=== PATIENT | female | born 1950 | race Caucasian/White ===

== ENCOUNTER 2018-05-27 16:52 | Observation (INO) ==
[2018-05-27] MEDS ORDERED: Aspirin 325 MG Tablet PO ONE (17:09)
[2018-05-27] MEDS ORDERED: Famotidine PF Inj 20 MG/2 ML Vial IV.PUSH ONE (17:09)
--- NOTE | 2018-05-27 17:45 | ED ---
HPI General Chief Complaint: Chest Pain Stated Complaint: Chest pain Time Seen by Provider: 05/27/18 17:01 Source: patient and family Mode of arrival: ambulatory Limitations: no limitations History of Present Illness HPI narrative: 67-year-old female who presents to the ED for evaluation of chest pain that she has had on and off for the past 3-4 days. Per patient she just came down from [place]. Per patient she came by car. Per patient chest pain has been ongoing since before coming in she thought it was was heartburn. She states that he feels like a burning sensation that goes to her throat and states in the epigastric area. Per patient gets worse when she does not eat and feels like she gets a sharper pain when she does not eat. Pain does not moved to the lower abdomen. Denies any surgeries to her abdomen other than a hysterectomy. No fevers chills or sweats. No cough or runny nose. Per patient the pain currently is 2 out of 10 and is not as severe as he was earlier today. He has not taken anything for this. She does have a history of hypothyroidism. Denies any history of cardiac disease. No other medical issues reported at this time. Related Data Home Medications Medication Instructions Recorded Confirmed levothyroxine [Synthroid] 100 mcg PO DAILY 05/27/18 05/27/18 Allergies Allergy/AdvReac Type Severity Reaction Status Date / Time ciprofloxacin Allergy Hives Verified 05/27/18 16:57 Sulfa (Sulfonamide Allergy Hives Verified 05/27/18 16:57 Antibiotics) Review of Systems ROS: all other systems reviewed are negative [facility] Medical History Medical History History of hysterectomy (Acute) Surgical History Surgical History History of thyroidectomy (Acute) Social History Social History Substance History: No History of Abuse Second Hand Smoke Exposure: No Smoking Status: Never smoker How Often Do You Have a Drink Containing Alcohol: Monthly or less Recent Travel in [facility] within the Last 8 Weeks: No Recent Out of Country Travel within the Last 8 Weeks: No Immunization History Tetanus Immunization: Unsure Exam Narrative Exam Narrative: GENERAL: Well-appearing in no distress SKIN: Focused skin assessment warm/dry. HEAD: Atraumatic. Normocephalic. EYES: Pupils equal and round. No scleral icterus. No injection or drainage. ENT: No nasal bleeding or discharge. Mucous membranes pink and moist. Tongue is midline. no Uvula deviation. NECK: Trachea midline. No JVD. CARDIOVASCULAR: Regular rate and rhythm. No murmur appreciated. RESPIRATORY: No accessory muscle use. Clear to auscultation. Breath sounds equal bilaterally. GASTROINTESTINAL: Abdomen soft, non-tender, nondistended. Hepatic and splenic margins not palpable. MUSCULOSKELETAL: No obvious deformities. No clubbing. No cyanosis. No edema. Full range of motion of the upper and lower extremities bilaterally. 2+ pulses bilaterally. NEUROLOGICAL: Awake and alert. No obvious cranial nerve deficits. Motor grossly within normal limits. Normal speech. PSYCHIATRIC: Appropriate mood and affect; insight and judgment normal. Course Initial Documented Vital Signs Temperature 98.5 F 05/27/18 16:55 Pulse Rate 92 H 05/27/18 16:55 Respiratory Rate 20 05/27/18 16:55 Blood Pressure 195/89 H 05/27/18 16:55 Pulse Oximetry 96 05/27/18 16:55 Last Documented Vital Signs Temperature 98.5 F 05/28/18 07:39 Pulse Rate 72 05/28/18 08:00 Respiratory Rate 20 05/28/18 07:39 Blood Pressure 145/66 H 05/28/18 07:39 Pulse Oximetry 97 05/28/18 07:39 Medical Decision Making CHRISTOPHER Attestation CHRISTOPHER supervised visit: Yes Attestation: I, Dr. Graham, have reviewed the advance practice practitioner's documentation and am in agreement, met with the patient face to face, made the diagnosis, and the medical decision making was done by me. *My assessment and Findings: Patient is a 67 year old female who comes in complaining of chest pain. Exam shows no acute abnormalities. Lungs are CTA, heart is RRR. Labs sent show no acute abnormalities. Patient will be placed in chest pain center for further management. MDM Narrative Medical decision making narrative: 67-year-old female who presents to the ED for evaluation of chest pain. Patient was properly examined and was found to have signs and symptoms consistent appears to be chest pain. unclear at this time. Labs and imaging ordered. Labs and imaging were essentially unremarkable here. Patient still somewhat hypertensive. She was given hydralazine IV. This time I think is reasonable for the patient be admitted to chest pain center for chest pain center rule out. My attending Dr. Graham agrees with this plan. Patient was admitted to the chest pain center by me. Medical Screen Exam Complete: Yes Emergency Medical Condition: Yes Differential Diagnosis Differential Diagnosis: Chest pain versus atypical chest pain versus GERD versus gastritis versus ACS Medical Records Medical records reviewed: Yes I reviewed the patient's medical records. Lab Data Lab results reviewed: Yes I reviewed the patient's lab results. Result diagrams: 05/27/18 17:18 05/27/18 17:18 Lab Results 05/27/18 05/27/18 05/27/18 Range/Units 17:18 17:18 17:18 WBC 9.2 (4.0-11.0) th/mm3 RBC 4.78 (4.00-5.30) mil/mm3 Hgb 14.6 (11.6-15.3) gm/dL Hct 44.0 (35.0-46.0) % MCV 92.0 (80.0-100.0) fL MCH 30.5 (27.0-34.0) pg MCHC 33.1 (32.0-36.0) % RDW 13.4 (11.6-17.2) % Plt Count 306 (150-450) th/mm3 MPV 7.6 (7.0-11.0) fL Neut % (Auto) 64.3 (16.0-70.0) % Lymph % (Auto) 27.3 (9.0-44.0) % [place] % (Auto) 7.0 (0.0-8.0) % Eos % (Auto) 0.7 (0.0-4.0) % Baso % (Auto) 0.7 (0.0-2.0) % Neut # (Auto) 5.9 (1.8-7.7) th/mm3 Lymph # (Auto) 2.5 (1.0-4.8) th/mm3 Marathon # (Auto) 0.6 (0.0-0.9) th/mm3 Eos # (Auto) 0.1 (0.0-0.4) th/mm3 Baso # (Auto) 0.1 (0.0-0.2) th/mm3 WBC Differential . Differential Comment Auto diff final Sodium 138 (136-145) meq/L Potassium 3.8 (3.5-5.1) meq/L Chloride 103 (98-107) meq/L Carbon Dioxide 27.7 (21.0-32.0) meq/L Anion Gap 7 (5-15) meq/L BUN 10 (7-18) mg/dL Creatinine 1.00 (0.50-1.00) mg/dL Estimated GFR 56 L (>89) mL/min Random Glucose 155 H (74-106) mg/dL Calcium 8.6 (8.5-10.1) mg/dL Total Bilirubin 0.3 (0.2-1.0) mg/dL AST 31 (15-37) U/L ALT 38 (10-53) U/L Alkaline Phosphatase 116 (45-117) U/L Total Creatine Kinase 124 (26-192) U/L CK-MB (CK-2) 2.4 (0.5-3.6) ng/mL Troponin I Less than 0.02 L (0.02-0.05) ng/mL Total Protein 7.7 (6.4-8.2) g/dL Albumin 3.6 (3.4-5.0) g/dL Lipase 221 (73-393) U/L TSH 1.270 Cancelled (0.358-3.740) uIU/mL 05/27/18 05/28/18 Range/Units 21:00 00:22 WBC (4.0-11.0) th/mm3 RBC (4.00-5.30) mil/mm3 Hgb (11.6-15.3) gm/dL Hct (35.0-46.0) % MCV (80.0-100.0) fL MCH (27.0-34.0) pg MCHC (32.0-36.0) % RDW (11.6-17.2) % Plt Count (150-450) th/mm3 MPV (7.0-11.0) fL Neut % (Auto) (16.0-70.0) % Lymph % (Auto) (9.0-44.0) % Marathon % (Auto) (0.0-8.0) % Eos % (Auto) (0.0-4.0) % Baso % (Auto) (0.0-2.0) % Neut # (Auto) (1.8-7.7) th/mm3 Lymph # (Auto) (1.0-4.8) th/mm3 Marathon # (Auto) (0.0-0.9) th/mm3 Eos # (Auto) (0.0-0.4) th/mm3 Baso # (Auto) (0.0-0.2) th/mm3 WBC Differential Differential Comment Sodium (136-145) meq/L Potassium (3.5-5.1) meq/L Chloride (98-107) meq/L Carbon Dioxide (21.0-32.0) meq/L Anion Gap (5-15) meq/L BUN (7-18) mg/dL Creatinine (0.50-1.00) mg/dL Estimated GFR (>89) mL/min Random Glucose (74-106) mg/dL Calcium (8.5-10.1) mg/dL Total Bilirubin (0.2-1.0) mg/dL AST (15-37) U/L ALT (10-53) U/L Alkaline Phosphatase (45-117) U/L Total Creatine Kinase 117 99 (26-192) U/L CK-MB (CK-2) (0.5-3.6) ng/mL Troponin I Less than 0.02 L Less than 0.02 L (0.02-0.05) ng/mL Total Protein (6.4-8.2) g/dL Albumin (3.4-5.0) g/dL Lipase (73-393) U/L TSH (0.358-3.740) uIU/mL Imaging Data Attestation: I personally reviewed and interpreted this imaging study as follows : Radiologist's impression: Chest X-Ray 05/27/18 17:09 CONCLUSION: No acute cardiopulmonary findings. ECG Data Attestation: I personally reviewed and interpreted this ECG as follows: Interpretation: EKG shows sinus rhythm with no sign of acute ischemia read by me and attending for no sign of ST elevations. Vent rate of 96 bpm, ID interval 172 ms, no ST elevations. Discharge Plan Discharge Disposition Patient Disposition: ED Admit(ED Internal Use Only) Discharge Condition Condition: Stable Discharge Order Discharge Orders: Discharge Order (Routine); Ordered 05/28/18 Ordered By: Brittnee Weaver ED Use Only Admit Order (Routine); Ordered 05/27/18 Ordered By: Lm Mclain Discharge Details Anticipated Discharge Date: 05/28/18 Diagnosis: Chest pain, rule out acute myocardial infarction Physicians Team ED Provider: Deisy Graham ED Midlevel Provider: Lm Mclain Primary Care Provider: UNKNOWN, Attending Provider: Mckayla Medina Status ED Status: Left Department Discharge Information Discharge Date/Time: 05/27/18 22:30
--- NOTE | 2018-05-27 17:46 | XR ---
EXAM DATE: 05/27/2018 5:42 PM EST AGE/SEX: 67 years / Female INDICATIONS: Mid chest pain. CLINICAL DATA: This is the patient's initial encounter. Patient reports that signs and symptoms have been present for 3 days and indicates a pain score of 5/10. MEDICAL/SURGICAL HISTORY: None. None. COMPARISON: No prior exams available for comparison. FINDINGS: A single AP view of the chest demonstrates the lungs to be symmetrically aerated without evidence of mass, focal consolidation, or effusion. Minimal linear atelectasis/scarring in the lateral left lung base. No definite pneumothorax identified. The cardiomediastinal contours are unremarkable. Osseous structures are grossly intact. CONCLUSION: No acute cardiopulmonary findings. Electronically signed by: Chetna Mayen MD Board Certified Radiologist 05/27/2018 5:45 PM EST
[2018-05-27 17:57] LABS: Baso # (Auto) 0.1 th/mm3 (0.0-0.2); Baso % (Auto) 0.7 % (0.0-2.0); Eos # (Auto) 0.1 th/mm3 (0.0-0.4); Eos % (Auto) 0.7 % (0.0-4.0); Hemoglobin 14.6 gm/dL (11.6-15.3); Lymph # (Auto) 2.5 th/mm3 (1.0-4.8); Lymph % (Auto) 27.3 % (9.0-44.0); Mean Corpuscular HGB Conc 33.1 % (32.0-36.0); Mean Corpuscular Hemoglobin 30.5 pg (27.0-34.0); Mean Platelet Volume 7.6 fL (7.0-11.0); Mono # (Auto) 0.6 th/mm3 (0.0-0.9); Neut # (Auto) 5.9 th/mm3 (1.8-7.7); Neut % (Auto) 64.3 % (16.0-70.0); Platelet Count 306 th/mm3 (150-450); Red Blood Count 4.78 mil/mm3 (4.00-5.30); Red Cell Distribution Width 13.4 % (11.6-17.2); White Blood Count 9.2 th/mm3 (4.0-11.0)
[2018-05-27 18:29] LABS: Albumin 3.6 g/dL (3.4-5.0); Anion Gap 7 meq/L (5-15); Aspartate Aminotransferase 31 U/L (15-37); Blood Urea Nitrogen 10 mg/dL (7-18); Calcium 8.6 mg/dL (8.5-10.1); Carbon Dioxide 27.7 meq/L (21.0-32.0); Chloride 103 meq/L (98-107); Glomerular Filtration Rate 56 mL/min (>89); Glucose,Random 155 mg/dL (74-106); Lipase 221 U/L (73-393); Potassium 3.8 meq/L (3.5-5.1); Sodium 138 meq/L (136-145)
[2018-05-27 18:31] LABS: Alanine Aminotransferase 38 U/L (10-53)
[2018-05-27 18:34] LABS: Alkaline Phosphatase 116 U/L (45-117); Creatine Kinase 124 U/L (26-192); Total Protein 7.7 g/dL (6.4-8.2)
[2018-05-27] MEDS ORDERED: hydrALAZINE HCl Inj 20 MG/ML Vial IV.PUSH ONE ×2 (18:41→20:14)
[2018-05-27 18:46] LABS: Creatine Kinase MB 2.4 ng/mL (0.5-3.6)
[2018-05-27] MEDS ORDERED: Acetaminophen 500 MG Tablet PO PRN (19:40)
[2018-05-27] MEDS: Famotidine 20 MG Tablet PO SCH (20:37)
[2018-05-27 21:55] LABS: Creatine Kinase 117 U/L (26-192)
[2018-05-28 01:17] LABS: Creatine Kinase 99 U/L (26-192)
[2018-05-28] MEDS ORDERED: amLODIPine 5 MG Tablet PO ONE (08:00)
[2018-05-28] MEDS ORDERED: Aspirin 325 MG Tablet PO SCH (09:00)
[2018-05-28] MEDS: Famotidine 20 MG Tablet PO SCH (09:22)
--- NOTE | 2018-05-28 10:52 | P.HPCA ---
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 Several weeks ago after attending a concert she developed what she described as a crushing low sternal chest discomfort that lasted for about 5 minutes. This was not precipitated by any activity that she is aware of and was not associated with any other symptoms. The morning after [place] she drank a bloody Dianne (unusual for her) and experienced another episode of substernal discomfort. Associated with a feeling of radiation up into her throat and mildly into her stomach that is associated with a bad taste and she describes as GERD. This seems to be associated with either an empty stomach or eating spicy foods. She is scheduled for a GI workup in the near future. Her current episode of chest discomfort began began with no precipitating events and was described as a 3 out of 10, nonradiating, no shortness of breath diaphoresis or nausea. Her brought her to the emergency room because a few weeks ago a friend of theirs also had indigestion and when he was brought to the emergency room was actually having a heart attack. She is currently pain -free and resting comfortably. She has no other medical history other than a thyroidectomy for enlarged thyroid in 2009 and a hysterectomy in 2013 Review of Systems All other systems reviewed negative except as [facility] - History History Provided By: Patient - Medical History Medical History: Medical History (Last Reviewed 05/27/18 @ 17:40 by SUSIE Brownlee) History of hysterectomy - Surgical History Surgical History: Surgical History (Last Reviewed 05/27/18 @ 17:40 by SUSIE Brownlee) History of thyroidectomy - Tobacco History Second Hand Smoke Exposure: No Smoking Status: Never smoker - Alcohol History How Often Do You Have a Drink Containing Alcohol: Monthly or less - Substance Use History Substance History: No History of Abuse - Travel History Recent Travel in the [place] Within the Last 8 Weeks: No Recent Travel Out of the Country Within the Last 8 Weeks: No - Immunization History Tetanus Immunization: Unsure Medications and Allergies Active Medications: Active Medications Acetaminophen (Tylenol) 500 mg PO Q4H PRN PRN Reason: HEADACHE Aspirin (Aspirin) 325 mg PO DAILY CRESCENCIO Last Admin: 05/28/18 09:22 Dose: 325 mg Famotidine (Pepcid) 20 mg PO BID [facility] Last Admin: 05/28/18 09:22 Dose: 20 mg Nitroglycerin (Nitrostat Sl) 0.4 mg SL Q5M PRN PRN Reason: CHEST PAIN Ondansetron HCl (Zofran Inj) 4 mg IV.PUSH Q6H PRN PRN Reason: NAUSEA Sodium Chloride (Ns Flush) 2 ml IV.FLUSH BID [facility] Last Admin: 05/28/18 09:23 Dose: 2 ml Sodium Chloride (Ns Flush) 2 ml IV.FLUSH PRN PRN PRN Reason: FLUSH AFTER USING IV ACCESS Allergies Allergy/AdvReac Type Severity Reaction Status Date / Time ciprofloxacin Allergy Hives Verified 05/27/18 16:57 Sulfa (Sulfonamide Allergy Hives Verified 05/27/18 16:57 Antibiotics) Home Medications Medication Instructions Recorded Confirmed Type levothyroxine [Synthroid] 100 mcg PO DAILY 05/27/18 05/27/18 History Exam Vital signs: Vital Signs 05/27/18 16:55 05/27/18 17:12 05/27/18 17:15 Temperature 98.5 F Pulse Rate 92 H 94 H Respiratory Rate 20 18 Blood Pressure 195/89 H 222/94 H Pulse Oximetry 96 97 97 05/27/18 17:31 05/27/18 18:02 05/27/18 18:57 Temperature Pulse Rate 95 H 82 79 Respiratory Rate 18 18 Blood Pressure 208/91 H 206/92 H Pulse Oximetry 97 95 05/27/18 20:00 05/27/18 20:03 05/27/18 20:32 Temperature Pulse Rate 93 H 96 H 109 H Respiratory Rate 17 15 Blood Pressure 216/89 H 216/89 H 199/85 H Pulse Oximetry 98 98 97 05/27/18 20:57 05/27/18 22:06 05/27/18 23:45 Temperature 97.9 F Pulse Rate 102 H 99 H 84 Respiratory Rate 16 18 Blood Pressure 192/81 H 144/67 H 149/68 H Pulse Oximetry 97 96 98 05/28/18 04:09 05/28/18 07:39 Temperature 97.7 F 98.5 F Pulse Rate 71 76 Respiratory Rate 17 20 Blood Pressure 142/68 H 145/66 H Pulse Oximetry 97 97 Intake & Output 05/27/18 05/28/18 05/28/18 18:59 06:59 18:59 Weight 99.79 kg 99.79 kg Other: # Voids 2 Date of Last Bowel Movement 05/27/18 Weight On Admission 99.79 kg Narrative: Well-nourished well-developed mildly obese woman in no acute distress Skin warm dry normal texture turgor Head normocephalic atraumatic hair normal distribution Eyes PERRLA EOMI sclera clear Mouth mucous membranes moist tongue well papillated and midline upper partial plate in place no lesions Neck well-healed thyroid scar supple no JVD masses nodes or bruits Chest clear to auscultation with no rales wheezes or rhonchi Cardiovascular PMI is not displaced there is a regular rhythm with an occasional PVC there is also a 2/6 murmur best heard along the right sternal border. (The patient was aware of this murmur and states she has been evaluated for it in the past and was told that she has mild tricuspid regurgitation) Abdomen obese soft nontender no guarding or rebound no masses palpable Extremities no clubbing cyanosis but does have trace of edema lower extremities Neurologic cranial nerves II, IV, V, 6, 7, 12, all intact. Motor 5+ and equal in all extremities. Memory function good Psychiatric good mood and affect with intact judgment Results 05/27/18 17:18 05/27/18 17:18 Cardiac Enzymes 05/27/18 05/27/18 05/28/18 Range/Units :18 21:00 00:22 AST 31 (15-37) U/L CK-MB (CK-2) 2.4 (0.5-3.6) ng/mL Troponin I Less than 0.02 L Less than 0.02 L Less than 0.02 L (0.02-0.05) ng/mL CBC 05/27/18 Range/Units 17:18 WBC 9.2 (4.0-11.0) th/mm3 RBC 4.78 (4.00-5.30) mil/mm3 Hgb 14.6 (11.6-15.3) gm/dL Hct 44.0 (35.0-46.0) % Plt Count 306 (150-450) th/mm3 Neut # (Auto) 5.9 (1.8-7.7) th/mm3 Lymph # (Auto) 2.5 (1.0-4.8) th/mm3 Collin # (Auto) 0.6 (0.0-0.9) th/mm3 Eos # (Auto) 0.1 (0.0-0.4) th/mm3 Baso # (Auto) 0.1 (0.0-0.2) th/mm3 Comprehensive Metabolic Panel 05/27/18 Range/Units 17:18 Sodium 138 (136-145) meq/L Potassium 3.8 (3.5-5.1) meq/L Chloride 103 (98-107) meq/L Carbon Dioxide 27.7 (21.0-32.0) meq/L BUN 10 (7-18) mg/dL Creatinine 1.00 (0.50-1.00) mg/dL Calcium 8.6 (8.5-10.1) mg/dL AST 31 (15-37) U/L ALT 38 (10-53) U/L Alkaline Phosphatase 116 (45-117) U/L Total Protein 7.7 (6.4-8.2) g/dL Albumin 3.6 (3.4-5.0) g/dL Intake and Output 05/27/18 05/28/18 05/28/18 22:59 06:59 14:59 Other: # Voids 2 Date of Last Bowel Movement 05/27/18 Weight 99.79 kg Weight On Admission 99.79 kg - Imaging and Cardiology Imaging: Impressions Chest X-Ray 05/27/18 17:09 CONCLUSION: No acute cardiopulmonary findings. EKG interpretations - EKG EKG results cardiology: sinus rhythm, normal axis (Minimal ST depression is noted but unchanged x4) Caprini VTE Risk Assessment Caprini VTE Risk Assessment: No/Low Risk (score <= 1) Caprini Risk Assessment Model: Point Value = 1 Point Value = 2 Point Value = 3 Point Value = 5 Age 41-60 Minor surgery BMI > 25 kg/m2 Swollen legs Varicose veins or History of unexplained or recurrent spontaneous Oral contraceptives or hormone replacement Sepsis (< 1 month) Serious lung disease, including pneumonia (< 1 month) Abnormal pulmonary function Acute myocardial infarction Congestive heart failure (< 1 month) History of inflammatory bowel disease Medical patient at bed rest Age 61-74 Arthroscopic surgery Major open surgery (> 45 min) Laparoscopic surgery (> 45 min) Malignancy Confined to bed (> 72 hours) Immobilizing plaster cast Central venous access Age >= 75 History of VTE Family history of VTE Factor V Leiden Prothrombin [id number] Lupus anticoagulant Anticardiolipin antibodies Elevated serum homocysteine Heparin-induced thrombocytopenia Other congenital or acquired thrombophilia Stroke (< 1 month) Elective arthroplasty Hip, pelvis, or leg fracture Acute spinal cord injury (< 1 month) Prophylaxis Regimen: Total Risk Factor Score Risk Level Prophylaxis Regimen 0-1 Low Early ambulation 2 Moderate Order ONE of the following: *Sequential Compression Device (SCD) *Heparin 5000 units SQ BID 3-4 Higher Order ONE of the following medications: *Heparin 5000 units SQ TID *Enoxaparin/Lovenox 40 mg SQ daily (WT < 150 kg, CrCl > 30 mL/min) *Enoxaparin/Lovenox 30 mg SQ daily (WT < 150 kg, CrCl > 10-29 mL/min) *Enoxaparin/Lovenox 30 mg SQ BID (WT < 150 kg, CrCl > 30 mL/min) AND/OR *Sequential Compression Device (SCD) 5 or more Highest Order ONE of the following medications: *Heparin 5000 units SQ TID (Preferred with Epidurals) *Enoxaparin/Lovenox 40 mg SQ daily (WT < 150 kg, CrCl > 30 mL/min) *Enoxaparin/Lovenox 30 mg SQ daily (WT < 150 kg, CrCl > 10-29 mL/min) *Enoxaparin/Lovenox 30 mg SQ BID (WT < 150 kg, CrCl > 30 mL/min) AND *Sequential Compression Device (SCD) Assessment and Plan - Plan Patient is ruled out for ACS using standard chest pain center protocol. Her impression that this is gastrointestinal as highly probable however she will be ruled out with stress testing prior to discharge. She does not wish to have a nuclear stress test so in spite of the minimal ST changes exercise stress test will be obtained. If this is negative she will be discharged. If positive further evaluation with a nuclear will be highly recommended. Patient is personal friends with Dr. Tamanna Kincaid previously worked with him in [place]. She certainly will be followed with his assistance while here. Code Status: Full code Discussed Condition With: Discussed plan with the patient and her who is at bedside Discharge Planning: If exercise stress testing proves to be negative she will be discharged further follow-up on an outpatient basis - Attending Attestation I attest that the patient's presentation warranted the evaluation and treatment as provided H&P: Quality - VTE Deep Vein Thrombosis/Pulmonary Embolism Present on Admission: No
--- NOTE | 2018-05-28 11:26 | TR ---
Date Performed: 05/28/2018 Time Performed: 10:50:48 DOCTOR: Kaushik Vora DRUG LIST: CLINICAL HISTORY: REASON FOR TEST: ACUTE CHEST PAIN REASON FOR ENDING: OBSERVATION: CONCLUSION: Quinten protocol completed. Stopped sec to exceeding target heart rate and leg fatigue . Maximum NV=417 Max HR [id number]=183.0% Maximum WO=368/90 Total Exercise Time=6:34. No reprod chest d iscomfort. Quick upsloping st segments. Good exercise tolerance. Normal bp response. Recovery infrequ ent PVCs otherwise quick and unremarkable. COMMENTS: Patient has mildly abnormal resting EKG but strongly preferred not to obtain a nuclear stress test. Patient exercised using a standard Quinten protocol reaching her maximum predicted heart rate. She had no symptoms, no shortness of breath, no indigestion. Her resting EKG was mildly abno rmal with slight ST segment depression. With exercise she developed additional J-point depression bu t this was associated with upsloping ST segments. This was felt to represent a low probability of si gnificant ischemia as a cause of current presentation. 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
--- NOTE | 2018-05-28 14:13 | ECG ---
Date Performed: 05/28/2018 Time Performed: 00:25:17 PTAGE: 67 years EKG: Sinus rhythm WITH OCCASIONAL SUPRAVENTRICULAR PREMATURE COMPLEXES BORDERLINE ECG Rate has slowed but otherwise no significant change PREVIOUS TRACING : 05/27/2018 21.17 DOCTOR: Kaushik Vora Interpretating Date/Time 05/28/2018 14:12:03
--- NOTE | 2018-05-28 14:16 | ECG ---
Date Performed: 05/27/2018 Time Performed: 21:17:22 PTAGE: 67 years EKG: SINUS TACHYCARDIA NONSPECIFIC ST DEPRESSION ABNORMAL ECG No significant change PREVIOUS TRACING : 05/27/2018 17.04 DOCTOR: Kaushik Vora Interpretating Date/Time 05/28/2018 14:15:37
--- NOTE | 2018-05-28 14:18 | ECG ---
Date Performed: 05/27/2018 Time Performed: 17:04:05 PTAGE: 67 years EKG: Sinus rhythm MINIMAL ST DEPRESSION BORDERLINE ECG INTERPRETATION BASED ON A DEFAULT AGE OF 40 YEARS NO PREVIOUS TRACING DOCTOR: Kaushik Vora Interpretating Date/Time 05/28/2018 14:17:33
== END 2018-05-28 12:36 | disposition home or self-care (01) ==
LOC: NEDA 16:52 → NEPC 16:52 → NEPFCDU 22:21
PROVIDERS: ADMIT Internal Medicine Interventional Cardiology; ATTEND Internal Medicine Interventional Cardiology
CPT/HCPCS: 71010; 71045; 80053; 82550; 82552; 83690; 84443; 84484; 85025; 90774; 90775; 90784; 93005; 93017; 96374; 96375; 96376; 99285; C8952; G0378; J0360